=== PATIENT | female | born 1965 | race Caucasian/White ===

== ENCOUNTER → 2017-09-08 | Outpatient (CLI) | payer BC ==
[2017-09-08 08:25] LABS: CREATINE KINASE 61 U/L (30-135); TRIGLYCERIDES 62 mg/dL (<150)
[2017-09-08 08:36] LABS: DIRECT LDL 158 mg/dL (<100)
== END ==
LOC: OD 07:11
PROVIDERS: ATTEND Obstetrics & Gynecology
DX: E78.5 Hyperlipidemia, unspecified (principal); R53.83 Other fatigue; M25.50 Pain in unspecified joint
CPT/HCPCS: 36415; 80061; 82550; 84443; 85652; 86430